=== PATIENT | male | born 1965 | race Caucasian/White ===

== ENCOUNTER → 2024-07-19 | Outpatient (CLI) | payer SELFPAY ==
[2024-07-19 17:44] LABS: Absolute Lymphocyte Count 1.91 X10^3/uL (0.83-4.51); Absolute Neutrophil Count 4.5 X10^3/uL (2.0-7.7); Basophil# 0.05 X10^3/uL; Basophil% 0.7 % (0-1); Eosinophil# 0.37 X10^3/uL; Hematocrit 43.5 % (40-54); Hemoglobin 14.5 g/dL (13.0-16.5); Lymphocyte # 1.91 X10^3/ul (0.83-4.51); Lymphocyte % 25.7 % (19-41); Mean Corp Hgb Conc 33.3 g/dL (32-36); Mean Corpuscular Hgb 29.4 pg (27.0-32.0); Mean Corpuscular Volume 88.1 fL (80-94); Mean Platelet Vol. 9.4 fl (6.2-12.0); Monocyte# 0.62 X10^3/uL; Monocyte% 8.3 % (0-10); NRBC Flagged by Analyzer 0 % (0-5); Neutrophil # 4.47 X10^3/uL (2.7-7.7); Neutrophil % 60.2 % (47-70); Platelet Count 376 K/mm3 (150-450); RBC Distribution Width CV 13.2 % (11.6-14.6); RBC Distribution Width SD 42.5 fl (35.1-43.9); Red Blood Count 4.94 M/mm3 (4.6-6.2); White Blood Count 7.4 K/mm3 (4.4-11.0)
[2024-07-19 22:05] LABS: ALB/GLOB Ratio 1.8 RATIO (0.9-2.4); AST(SGOT) 20 U/L (<=37); Alanine Aminotransfer ALT/SGPT 19 U/L (<=46); Albumin, Serum 4.4 g/dL (3.5-5.0); Alkaline Phosphatase 78 U/L (40-129); Anion Gap 11 (5-15); BUN 23 mg/dL (4-19); BUN/Creat Ratio 23.2 RATIO (10-20); Calcium 9.6 mg/dL (7.6-11.0); Carbon Dioxide 25.3 mmol/L (22.0-29.0); Chloride 103 mmol/L (96-108); Creatinine, Serum 1.01 mg/dL (0.70-1.20); EST Glomerular Filtration Rate 86 (>60); Globulin 2.5 g/dL (2.2-4.2); Glucose 88 mg/dL (70-99); PSA,Total - Annual Screen 3.52 ng/mL (0.02-4.00); Potassium 4.2 mmol/L (3.3-5.1); Protein, Total 6.9 g/dL (5.9-8.4); Sodium Level 139 mmol/L (133-145); Total Bilirubin 0.32 mg/dL (0.00-1.30)
[2024-07-19 22:31] LABS: Cholesterol 209 mg/dL (<=200); High Density Lipoprotein 65 mg/dL; Low Density Lipoprotein Calc. 111 mg/dL; Triglycerides 166 mg/dL; Very Low Density Lipoprotein 33 mg/dL (5-40)
[2024-07-19 23:31] LABS: Vitamin D,25 Hydroxy 35.6 ng/mL (30-100)
== END | disposition home or self-care (01) ==
LOC: MTLAB 16:54
PROVIDERS: PCP Family Medicine; Referring Provider Family Medicine; Visit Provider Family Medicine
DX: Z00.00 Encounter for general adult medical examination without abnormal findings (principal); Z13.220 Encounter for screening for lipoid disorders; Z12.5 Encounter for screening for malignant neoplasm of prostate; Z13.1 Encounter for screening for diabetes mellitus
CPT/HCPCS: 36415; 80053; 80061; 82306; 84153; 85025; G0103